=== PATIENT | female | born 1960 ===

== ENCOUNTER 2017-01-27 10:19 | Day surgery (SDC) | payer OTHER ==
[2017-01-27] MEDS ORDERED: Lactated Ringer's 500 ML IV ONE (10:38)
[2017-01-27] MEDS ORDERED: Propofol 10 mg/ml Inj (20 ML) ONE (11:00)
[2017-01-27 11:34] VITALS: TEMP 98
[2017-01-27 11:47] VITALS: BP 112/71; PULSE 55; RESP 19; O2SAT 100
== END 2017-01-27 11:55 | disposition home or self-care (01) ==
LOC: H.ENDO 10:19
PROVIDERS: ATTEND Internal Medicine Gastroenterology
DX: Z12.11 Encounter for screening for malignant neoplasm of colon (principal); E03.9 Hypothyroidism, unspecified; K30 Functional dyspepsia; K44.9 Diaphragmatic hernia without obstruction or gangrene; K29.70 Gastritis, unspecified, without bleeding; K64.8 Other hemorrhoids

== ENCOUNTER 2017-06-29 09:37 | Emergency (ER) | payer SELFPAY ==
[2017-06-29 09:42] VITALS: TEMP 97.6
[2017-06-29 10:36] LABS: BASO % 0.5 % (0.0-2.0); EOS # 0.1 K/uL (0.0-0.7); EOS % 0.8 % (0.0-4.0); HEMATOCRIT 40.6 % (34.0-47.0); LYMPH # 2.4 K/uL (1.0-4.3); LYMPH % 35.1 % (20.0-40.0); MEAN CELL VOLUME 85.3 fl (81.0-99.0); MEAN CORPUSCULAR HEMOGLOBIN 29.4 pg (27.0-31.0); MEAN CORPUSCULAR HGB CONC 34.5 g/dL (33.0-37.0); MEAN PLATELET VOLUME 11.3 fl (7.2-11.7); MONO # 0.4 K/uL (0.0-0.8); MONO % 6.1 % (0.0-10.0); NEUT # 3.9 K/uL (1.8-7.0); NEUT % 57.5 % (50.0-75.0); NRBC % 0.1 % (0.0-0.0); RED CELL DISTRIBUTION WIDTH 13.3 % (11.5-14.5); WHITE BLOOD COUNT 6.9 K/uL (4.8-10.8)
--- NOTE | 2017-06-29 10:38 | ED PDOC ---
HPI: Abdomen Time Seen by Provider: 06/29/17 10:01 Chief Complaint (Nursing): Abdominal Pain Chief Complaint (Provider): Abdominal pain History Per: Patient History/Exam Limitations: no limitations Onset/Duration Of Symptoms: Days Outside of [place] travel?: No Associated Symptoms: denies: Nausea, Vomiting, Diarrhea Additional History Per: Patient Additional Complaint(s): 57yo female, with past medical history of cholecystectomy, hypothyroidsm, presents to ED for evaluation of abdominal pain. Patient states she was at the [facility] for a pap smear and she mentioned that she had some abdominal pain; patient was informed at the clinic to present to the ED for further evaluation. Patient states the pain is present in her abdomen upon palpation. She denies any fever, chills, nausea, vomiting, diarrhea. No other complaints. Past Medical History Reviewed: Historical Data, Nursing Documentation, Vital Signs Vital Signs: Last Vital Signs Temp 97.6 F 06/29/17 10:11 Pulse 60 06/29/17 16:41 Resp 18 06/29/17 16:41 BP 112/68 06/29/17 16:41 Pulse Ox 99 06/29/17 18:29 - Medical History PMH: Hypothyroidism - Surgical History Surgical History: Cholecystectomy - Family History Family History: States: No Known Family Hx - Home Medications Home Medications: Ambulatory Orders Medication Instructions Recorded Levothyroxine [Synthroid] 1 tab PO DAILY 01/27/17 Nitrofurantoin Macrocrystals 100 mg PO BID #14 cap 06/29/17 [Macrobid] - Allergies Allergies/Adverse Reactions: Allergies Allergy/AdvReac Type Severity Reaction Status Date / Time No Known Allergies Allergy Verified 06/29/17 10:10 Review of Systems ROS Statement: Except As Marked, All Systems Reviewed And Found Negative Constitutional: Negative for: Fever, Chills Gastrointestinal: Positive for: Abdominal Pain. Negative for: Nausea, Vomiting , Diarrhea Physical Exam - Reviewed Nursing Documentation Reviewed: Yes Vital Signs Reviewed: Yes - Physical Exam Appears: Positive for: Non-toxic, No Acute Distress Head Exam: Positive for: ATRAUMATIC, NORMAL INSPECTION, NORMOCEPHALIC Skin: Positive for: Normal Color Eye Exam: Positive for: Normal appearance Neck: Positive for: Supple Cardiovascular/Chest: Positive for: Regular Rate, Rhythm Respiratory: Positive for: Normal Breath Sounds Gastrointestinal/Abdominal: Positive for: Soft, Tenderness (mild right lower quadrant tenderness to palpation) Back: Positive for: Normal Inspection Extremity: Positive for: Normal ROM. Negative for: Deformity, Swelling Neurologic/Psych: Positive for: Alert, Oriented - Laboratory Results Result Diagrams: 06/29/17 10:33 06/29/17 10:33 - ECG O2 Sat by Pulse Oximetry: 99 (RA) Pulse Ox Interpretation: Normal Medical Decision Making Medical Decision Making: Time: 1015 Impression: Abdominal pain Differential: UTI, Kidney stones, diverticulitis Plan: -- CT Abdomen with IV Contrast -- BMP -- CBC Reassess Time: 1252 CT AP IMPRESSION: 1. Mild dilatation of mid and distal small bowel loops with fecalization of distal small bowel contents and large amount of stool in the ascending colon. Findings are most compatible with chronic stasis however developing bowel obstruction is also a consideration. Follow-up is advised. 2. Mild hepatomegaly and hepatic steatosis. 3. Apparent lobular lesion in the fundus of the uterus with mild central enhancement. A dedicated pelvic ultrasound is recommended for further evaluation. Scribe Attestation: Documented by Patricia Romero acting as a scribe for Kayla Odonnell MD. Provider Attestation: All medical record entries made by the Scribe were at my direction and personally dictated by me. I have reviewed the chart and agree that the record accurately reflects my personal performance of the history, physical exam, medical decision making, and the department course for this patient. I have also personally directed, reviewed, and agree with the discharge instructions and disposition. Disposition - Clinical Impression Clinical Impression: Uterine fibroid, UTI (urinary tract infection) - Patient ED Disposition Is Patient to be Admitted: No Doctor Will See Patient In The: Office Counseled Patient/Family Regarding: Studies Performed, Diagnosis, Need For Followup - Disposition Referrals: [facility] [Outside] Disposition: Routine/Home Disposition Time: 18:30 Condition: GOOD Additional Instructions: Follow up with your PCP in 2-3 days. Prescriptions: Nitrofurantoin Macrocrystals [Macrobid] 100 mg PO BID #14 cap Instructions: Uterine Fibroids (ED), Urinary Tract Infection in Women (ED)
[2017-06-29 10:55] LABS: BLOOD UREA NITROGEN 15 mg/dl (7-17); CALCIUM 9.1 mg/dL (8.4-10.2); CARBON DIOXIDE 25 mmol/L (22-30); CHLORIDE 106 mmol/L (98-107); GFR AFRICAN-AMERICAN > 60; GLUCOSE,RANDOM 103 mg/dL (65-105); POTASSIUM 3.6 MMOL/L (3.6-5.0); SODIUM 141 mmol/l (132-148)
[2017-06-29] MEDS ORDERED: Sodium Chloride 0.9% 50 ML IV ONE (11:16)
[2017-06-29] MEDS ORDERED: Iohexol 300 100 ML IJ ONE (11:16)
--- NOTE | 2017-06-29 12:55 | CT ---
PROCEDURE: CT Abdomen and Pelvis with contrast HISTORY: LLQ pain COMPARISON: None. TECHNIQUE: CT scan of the abdomen and pelvis was performed after intravenous administration of contrast. Oral contrast was not administered. Coronal and sagittal reformatted images were obtained. Contrast dose: 95 cc Omnipaque 300 Radiation dose: Total exam DLP = 738.88 mGy-cm. This CT exam was performed using one or more of the following dose reduction techniques: Automated exposure control, adjustment of the mA and/or kV according to patient size, and/or use of iterative reconstruction technique. FINDINGS: LOWER THORAX: The visualized lungs are clear. LIVER: Mild hepatomegaly and diffuse fatty infiltration in the liver. No gross lesion or ductal dilatation. GALLBLADDER AND BILE DUCTS: Not visualized. PANCREAS: Normal in size with homogeneous enhancement. No gross lesion or ductal dilatation. SPLEEN: Normal in size and appearance. ADRENALS: No discrete nodule. KIDNEYS AND URETERS: Both kidneys are normal in size and there is homogeneous enhancement. No hydronephrosis. No solid mass. VASCULATURE: No aortic aneurysm. BOWEL: The proximal small bowel loops are normal in caliber. There is mild dilatation of mid and distal small bowel loops with air-fluid levels and fecalization of distal small bowel contents. There is large amount of stool in the ascending colon. The remaining colon is essentially decompressed. APPENDIX: Normal appendix. PERITONEUM: No free fluid. No free air. LYMPH NODES: No enlarged lymph nodes. BLADDER: U partially decompressed. REPRODUCTIVE: The uterus is retroverted and normal in size. There is an apparent lobular enhancing lesion in the fundus of the uterus. BONES: No acute fracture. OTHER FINDINGS: None. IMPRESSION: 1. Mild dilatation of mid and distal small bowel loops with fecalization of distal small bowel contents and large amount of stool in the ascending colon. Findings are most compatible with chronic stasis however developing bowel obstruction is also a consideration. Follow-up is advised. 2. Mild hepatomegaly and hepatic steatosis. 3. Apparent lobular lesion in the fundus of the uterus with mild central enhancement. A dedicated pelvic ultrasound is recommended for further evaluation.
[2017-06-29 16:42] VITALS: BP 112/68; PULSE 60; RESP 18
--- NOTE | 2017-06-29 18:03 | US ---
HISTORY: abd pain uterine mass COMPARISON: CT scan performed the same day TECHNIQUE: Transabdominal and transvaginal pelvic ultrasound was performed FINDINGS: UTERUS: Measures 8.3 x 3.4 x 4.9 cm. Anteverted an normal in size. There is a 3.7 x 3.6 x 3.8 cm intramural fibroid in the fundus anteriorly and 1.9 x 1.1 x 2.1 cm posterior wall fibroid in the lower uterine segment. ENDOMETRIUM: Measures 4.0 mm in diameter. Normal in appearance. CERVIX: No cervical abnormality identified. RIGHT OVARY: Not visualized. LEFT OVARY: Measures 1.4 x 0.9 x 0.9 cm. No solid mass. Normal flow. FREE FLUID: No significant free fluid noted. OTHER FINDINGS: None. IMPRESSION: 3.8 cm intramural fibroid in the anterior fundus and 2.1 cm posterior wall lower uterine segment fibroid.
[2017-06-29 18:30] VITALS: O2SAT 99
== END 2017-06-29 18:42 | disposition home or self-care (01) ==
LOC: H.ER 09:37
DX: D25.1 Intramural leiomyoma of uterus (principal); N39.0 Urinary tract infection, site not specified; E03.9 Hypothyroidism, unspecified; K76.0 Fatty (change of) liver, not elsewhere classified
CPT/HCPCS: 74177; 76830; 76856; 80048; 85025; 99283; Q9967